=== PATIENT | female | born 1990 | race African-American/Black ===

== ENCOUNTER 2016-03-02 17:07 | Emergency (ER) | payer SELFPAY ==
[~2016-03-02] VITALS: Wt 78.0 kg
[~2016-03-02 17:07] MED LIST: LEVO1TAB26 PO
[2016-03-02] MEDS ORDERED: ALBU2.5V3 NEB (17:34)
[2016-03-02] MEDS ORDERED: PRED20TA PO (17:34)
[2016-03-02] MEDS ORDERED: ALBU18HF INHALATION (17:34)
--- NOTE | 2016-03-02 17:43 | ERD ---
ER Documentation Chief Complaint Date/Time DATE: 03/02/16 TIME: 17:40 Chief Complaint SOB SINCE LAST NIGHT. NO COUGH NO URI. HX OF ASTHMA, NO WHEEZING HPI 25-year-old female with a history of asthma complains of on and off shortness of breath over the last week. Patient states that she has not had an albuterol inhaler with her for 6 years, and has not needed one. She is developed a slight cough over the week, and describes chest tightness. She denies any fever , chills, nausea, vomiting. She has not had taken any exogenous steroids, no recent immobilization or surgeries, no leg swelling, denies history of DVT, and denies recent travel. ROS All systems reviewed and are negative except as per history of present illness. Medications Home Meds Active Scripts Albuterol Sulfate* (Ventolin HFA*) 18 Gm Hfa.aer.ad, 2 PUFF INHALATION Q4H, #1 INHALER Prov:ISA NICHOLSON PA-C 03/02/16 Albuterol Sulfate* (Albuterol Sulfate* Neb) 0.083%-3 Ml Neb, 2.5 MG NEB Q4 Y for SHORTNESS OF BREATH, #30 EA Prov:ISA NICHOLSON PA-C 03/02/16 Prednisone* (Prednisone*) 20 Mg Tab, 40 MG PO DAILY for 5 Days, TAB Prov:ISA NICHOLSON PA-C 03/02/16 Reported Medications Levonorgestrel-Ethinyl Estradiol (Lutera) 1 Tab Tablet, 1 TAB PO DAILY 08/04/12 Allergies Allergies: Coded Allergies: cyclobenzaprine HCl (Verified Allergy, Severe, BLURRED VISION 24 HRS, 08/04) No Known Allergies (Verified Allergy, Mild, 12/22/13) Uncoded Allergies: MUSCLE RELAXANT (Allergy, Unknown, 12/22/13) PMhx/Soc History of Surgery: No Anesthesia Reaction: No Hx Neurological Disorder: No Hx Respiratory Disorders: No Hx Cardiac Disorders: No Hx Psychiatric Problems: No Hx Miscellaneous Medical Probl: No Hx Alcohol Use: Yes Hx Substance Use: No Hx Tobacco Use: Yes Physical Exam Vitals Vital Signs Date Time Temp Pulse Resp B/P Pulse Ox O2 Delivery O2 Flow Rate FiO2 03/02/16 17:12 98.4 86 22 160/81 99 Physical Exam \General: Well-developed, well-nourished. The patient appears in no acute distress. HEENT: Head is normocephalic, atraumatic. No scleral icterus. Pupils are equal , round, and reactive. Oral mucous membranes are moist. No pharyngeal erythema. Neck: Supple. Nontender. Lungs: Clear to auscultation. Normal air movement. Heart: Regular rate and rhythm. S1 and S2 are normal. No murmurs, gallops, or rubs. Abdomen: Soft, nontender, nondistended. Bowel sounds are normoactive. Extremities: No clubbing or cyanosis. Normal pulses. Moving extremities x 4. No weakness. Neurologic: Alert and oriented 3. No focal deficits. Skin: Normal turgor. No rash or lesions. Procedures/MDM 25-year-old female complains of shortness of breath, chest tightness, likely a mild asthma exacerbation. She is PERC score negative, and is not in any respiratory distress. Breath sounds are normal, despite this I did offer the patient a breathing treatment at this time, as well as prednisone here, she states that because her insurance does not kick and she would prefer to use the prescriptions at home. I have advised her to return to the emergency room if her prescriptions are not helping her, that she may need a breathing treatment. I have also given her prescription for albuterol, as well as a nebulizer to be used at home. Differentials also include pneumonia, bronchitis, pneumothorax , acute coronary syndrome, dissection. Her vitals are reviewed, she does not have tachycardia, no signs of respiratory distress and her pulse oximetry was normal at room air. I doubt PE at this time. She was also given a list of community clinics for follow-up next week. Departure Diagnosis: Primary Impression: Asthma Condition: Good Patient Instructions: Asthma, Acute (Adult) Referrals: COMMUNITY CLINICS YOU HAVE RECEIVED A MEDICAL SCREENING EXAM AND THE RESULTS INDICATE THAT YOU DO NOT HAVE A CONDITION THAT REQUIRES URGENT TREATMENT IN THE EMERGENCY DEPARTMENT. FURTHER EVALUATION AND TREATMENT OF YOUR CONDITION CAN WAIT UNTIL YOU ARE SEEN IN YOUR DOCTORS OFFICE WITHIN THE NEXT 1-2 DAYS. IT IS YOUR RESPONSIBILITY TO MAKE AN APPOINTMENT FOR FOLOW-UP CARE. IF YOU HAVE A PRIMARY DOCTOR --you should call your primary doctor and schedule an appointment IF YOU DO NOT HAVE A PRIMARY DOCTOR YOU CAN CALL OUR PHYSICIAN REFERRAL HOTLINE AT IF YOU CAN NOT AFFORD TO SEE A PHYSICIAN YOU CAN CHOSE FROM THE FOLLOWING [facility] CLINICS [facility] [address] [facility] [address] [place] [facility] [address] [facility] [address] [facility] [address] [facility]. [address] [facility] YOU HAVE RECEIVED A MEDICAL SCREENING EXAM AND THE RESULTS INDICATE THAT YOU DO NOT HAVE A CONDITION THAT REQUIRES URGENT TREATMENT IN THE EMERGENCY DEPARTMENT. FURTHER EVALUATION AND TREATMENT OF YOUR CONDITION CAN WAIT UNTIL YOU ARE SEEN IN YOUR DOCTORS OFFICE WITHIN THE NEXT 1-2 DAYS. IT IS YOUR RESPONSIBILITY TO MAKE AN APPOINTMENT FOR FOLOW-UP CARE. IF YOU HAVE A PRIMARY DOCTOR --you should call your primary doctor and schedule and appointment IF YOU DO NOT HAVE A PRIMARY DOCTOR YOU CAN CALL OUR PHYSICIAN REFERRAL HOTLINE AT . IF YOU CAN NOT AFFORD TO SEE A PHYSICIAN YOU CAN CHOSE FROM THE FOLLOWING [facility] INSTITUTIONS: [facility] [address] [place] [address] [facility] [address] [place] [address] [facility] + [facility] [address] [place] [address] [facility] URGENT CARE/SPECIALTIES Additional Instructions: Call your primary care doctor TOMORROW for an appointment during the next 1-2 days.See the doctor sooner or return here if your condition worsens before your appointment time. ISA NICHOLSON PA-C Mar 02, 2016 17:43
== END 2016-03-02 17:35 | disposition home or self-care (01) ==
LOC: E/R 17:07
DX: J45.901 Unspecified asthma with (acute) exacerbation (principal); Z72.0 Tobacco use
CPT/HCPCS: 99284